=== PATIENT | female | born 2000 | race Caucasian/White ===

== ENCOUNTER 2023-08-04 20:01 | Emergency (ER) | payer OTHER ==
[~2023-08-04] VITALS: Ht 160 cm; Wt 90.7 kg
[2023-08-04 20:03] VITALS: BP_SYST 118; PULSE 88; RESP 16; TEMP 98.1; O2SAT 97
[2023-08-04] MEDS: LORazepam 1 MG TABLET PO ONE (20:29)
[2023-08-04 20:51] VITALS: BP_SYST 113; PULSE 78; RESP 16; TEMP 98.4; O2SAT 100
== END 2023-08-04 20:51 | disposition home or self-care (01) ==
LOC: SED 20:01
DX: F41.9 Anxiety disorder, unspecified (principal); F32.A Depression, unspecified; Z79.899 Other long term (current) drug therapy
CPT/HCPCS: 99283

== ENCOUNTER 2023-08-29 15:51 | Emergency (ER) | payer OTHER ==
[~2023-08-29] VITALS: Ht 162.6 cm; Wt 99.8 kg
[2023-08-29 16:50] VITALS: BP_SYST 133; PULSE 89; RESP 17; TEMP 97.9; O2SAT 97
[2023-08-29 18:45] LABS: BILIRUBIN,URINE 1+ (NEGATIVE); BLOOD, URINE 3+ (NEGATIVE); CLARITY/URINE CLEAR (CLEAR); COLOR,URINE YELLOW (YELLOW); GLUCOSE,URINE NEGATIVE (NEGATIVE); KETONES,URINE TRACE (NEGATIVE); LEUKOCYTE ESTERASE ,URINE NEGATIVE (NEGATIVE); NITRITE, URINE NEGATIVE (NEGATIVE); PH,URINE 5.5 (5.0-8.0); PROTEIN URINE 1+ (NEGATIVE)
[2023-08-29 19:01] LABS: BARBITURATE, URINE NEGATIVE (NEG <=200)
[2023-08-29 19:02] LABS: BENZODIAZEPINE, URINE NEGATIVE (NEG <=150); CANNABINOID, URINE POSITIVE (NEG <=50); COCAINE, URINE NEGATIVE (NEG <=150); METHAMPHETAMINES SCREEN,URINE NEGATIVE (NEG <=500); OPIATE, URINE NEGATIVE (NEG <=100); PHENCYCLIDINE SCREEN,URINE NEGATIVE (NEG <=25); UR TRICYCLIC ANTIDEPRESSANTS NEGATIVE (NEG <=300); URINE AMPHETAMINE NEGATIVE (NEG <=500); URINE METHADONE NEGATIVE (NEG <=200); URINE OXYCODONE SCREEN NEGATIVE (NEG <=100)
[2023-08-29 19:58] LABS: BACTERIA,URINE RARE /HPF (None Seen)
[2023-08-29 20:20] VITALS: BP_SYST 133; PULSE 89; RESP 17; TEMP 97.9; O2SAT 97
== END 2023-08-29 20:20 | disposition home or self-care (01) ==
LOC: SED 15:51
DX: Z00.00 Encounter for general adult medical examination without abnormal findings (principal); Z11.3 Encounter for screening for infections with a predominantly sexual mode of transmission; I10 Essential (primary) hypertension; Z88.8 Allergy status to other drugs, medicaments and biological substances; Z79.899 Other long term (current) drug therapy
CPT/HCPCS: 36415; 80307; 81000; 81001; 81015; 81025; 87070; 87205; 87210; 87491; 99284

== ENCOUNTER 2023-09-27 11:02 | Emergency (ER) | payer OTHER ==
[~2023-09-27] VITALS: Ht 160 cm; Wt 87.5 kg
[2023-09-27 11:15] VITALS: BP_SYST 121; PULSE 103; RESP 18; TEMP 98.3; O2SAT 100
[2023-09-27] MEDS ORDERED: PSEU30TA36 PO (11:31)
[2023-09-27] MEDS ORDERED: AMOX-520 PO (11:31)
[2023-09-27 11:53] VITALS: BP_SYST 121; PULSE 103; RESP 18; TEMP 98.3; O2SAT 100
== END 2023-09-27 11:51 | disposition home or self-care (01) ==
LOC: SED 11:02
DX: H66.91 Otitis media, unspecified, right ear (principal); Z88.8 Allergy status to other drugs, medicaments and biological substances; Z79.899 Other long term (current) drug therapy
CPT/HCPCS: 99283

== ENCOUNTER 2023-09-30 11:53 | Emergency (ER) | payer OTHER ==
[~2023-09-30] VITALS: Ht 160 cm; Wt 59.0 kg
[~2023-09-30 11:53] MED LIST: AMOX-520 PO; PSEU30TA36 PO
[2023-09-30 12:15] VITALS: RESP 18; TEMP 97; O2SAT 97
[2023-09-30] MEDS ORDERED: CORTEARS RIGHT EAR (12:21)
[2023-09-30] MEDS ORDERED: IBUP-1969 PO (12:21)
[2023-09-30] MEDS ORDERED: AMOX500C2 PO (12:21)
[2023-09-30] MEDS ORDERED: AMOX-423 PO (12:59)
[2023-09-30 13:22] VITALS: RESP 18; TEMP 97; O2SAT 97
== END 2023-09-30 13:30 | disposition home or self-care (01) ==
LOC: SED 11:53
DX: H60.91 Unspecified otitis externa, right ear (principal); Z88.4 Allergy status to anesthetic agent
CPT/HCPCS: 99283